=== PATIENT | female | born 1990 | race Caucasian/White ===

== ENCOUNTER 2017-12-26 11:34 | Emergency (ER) | payer OTHER ==
[~2017-12-26] VITALS: Ht 160 cm; Wt 108.9 kg
[~2017-12-26 11:34] MED LIST: ACTICIN 5% CREA60 GM TOP; BACTRIM DS TAB1 EACH PO; DOXYCYCLINE 10100 MG PO; NOHOMEMEDICATIONS; NORCO 5-325 TA1 EACH PO; PROVENTIL HFA6.7 G1 INH
[2017-12-26] MEDS ORDERED: EFFEXOR XR75 MG PO (12:02)
[2017-12-26] MEDS ORDERED: CLONAZEPAM 1 MG1 M1 PO (12:03)
[2017-12-26] MEDS ORDERED: PHENTERMINE H37.5 M1 PO (12:04)
[2017-12-26] MEDS ORDERED: NEXPLANON68 MG SUBQ (12:05)
[2017-12-26] MEDS ORDERED: ULTRAM 50MG TAB50 MG PO (13:11)
[2017-12-26 13:55] VITALS: BP 97/48
== END 2017-12-26 13:55 | disposition home or self-care (01) ==
LOC: ER 11:34
DX: S83.92XA Sprain of unspecified site of left knee, initial encounter (principal); J45.909 Unspecified asthma, uncomplicated; F41.9 Anxiety disorder, unspecified; F32.9 Major depressive disorder, single episode, unspecified; W10.9XXA Fall (on) (from) unspecified stairs and steps, initial encounter; Y93.89 Activity, other specified; Y92.89 Other specified places as the place of occurrence of the external cause; Y99.8 Other external cause status

== ENCOUNTER 2019-04-09 14:21 | Emergency (ER) | payer OTHER ==
[~2019-04-09] VITALS: Ht 162.6 cm; Wt 120.2 kg
[~2019-04-09 14:21] MED LIST changes: +CLONAZEPAM 1 MG1 M1 PO; +EFFEXOR XR75 MG PO; +NEXPLANON68 MG SUBQ; +PHENTERMINE H37.5 M1 PO; +ULTRAM 50MG TAB50 MG PO
[2019-04-09 15:40] VITALS: BP 119/84
[2019-04-09] MEDS ORDERED: NORCO 5-325 TA1 EAC1 PO (15:49)
== END 2019-04-09 15:40 | disposition home or self-care (01) ==
LOC: ER 14:21
DX: S92.352A Displaced fracture of fifth metatarsal bone, left foot, initial encounter for closed fracture (principal); J45.909 Unspecified asthma, uncomplicated; F41.9 Anxiety disorder, unspecified; F32.9 Major depressive disorder, single episode, unspecified; Z90.12 Acquired absence of left breast and nipple; W01.0XXA Fall on same level from slipping, tripping and stumbling without subsequent striking against object, initial encounter; Y92.89 Other specified places as the place of occurrence of the external cause; Y93.89 Activity, other specified; Y99.8 Other external cause status